=== PATIENT | female | born 2000 | race Caucasian/White ===

== ENCOUNTER 2019-02-18 14:57 | Emergency (ER) | payer MEDICAID ==
[~2019-02-18] VITALS: Ht 157.5 cm; Wt 54.5 kg
[2019-02-18 14:58] VITALS: Ht 157.5 cm; Wt 54.5 kg
--- NOTE | 2019-02-18 15:19 | ERD ---
ER Documentation Chief Complaint Chief Complaint L thumb laceration s/p cutting it on metal bed piece HPI Patient is a 19 years old female with no known past medical history presenting to the clinic for laceration of left thumb next few hours ago while at work. She reports cutting bread when she accidentally cut her left thumb with the red knife. She admits to last tetanus vaccination 2 years ago. ROS All systems reviewed and are negative except as per history of present illness. Medications Home Meds Active Scripts Ibuprofen* (Motrin*) 800 Mg Tab, 800 MG PO Q6, #30 TAB Prov:WOODY EATON PA-C 02/18/19 Allergies Allergies: Coded Allergies: No Known Allergy (Unverified , 02/18/19) Physical Exam Vitals Vital Signs Date Temp Pulse Resp B/P (MAP) Pulse Ox O2 O2 Flow FiO2 Time Delivery Rate 02/18/19 98.4 107 16 130/91 98 14:58 (104) Physical Exam Const: No acute distress Head: Atraumatic Eyes: Normal Conjunctiva Resp: Clear to auscultation bilaterally Cardio: Regular rate and rhythm, no murmurs Neur: Awake and alert Psych: Normal Mood and Affect Left Thumb Exam: 4 cm laceration located on distal ventral that is actively bleeding. No signs of any pus drainage, erythema, induration noted. Results 24 hrs Laboratory Tests Test 02/18/19 15:30 POC Beta HCG, Qualitative NEGATIVE Current Medications Medications Dose Sig/Keyanna Start Time Status Last (Trade) Ordered Route PRN Stop Time Admin Dose Reason Admin Ibuprofen 600 mg ONCE ONCE 02/18/19 DC 02/18/19 (Motrin) PO 15:30 02/18/19 15:16 15:31 Bacitracin 1 applic ONCE ONCE 02/18/19 DC 02/18/19 (Bacitracin TOP 15:30 02/18/19 15:14 Oint (Ud)) 15:31 Procedures/MDM Patient was seen and evaluated for thumb laceration. Wound irrigation with Betadine and normal saline was applied prior to the laceration repair. Under sterile technique, 1% lidocaine was applied allowed by 4 - 4.0 Prolene sutures applied. Patient tolerated the procedure well without any complications. Dressing application with bacitracin applied post laceration repair. Patient stable and ready for discharge. Follow-up in 7 days for suture removal. Patient will not be given antibiotics at today's visit unless signs of infection persist. Patient was advised to follow-up in 2 days for wound checkup. Departure Diagnosis: Primary Impression: Laceration Condition: Stable Patient Instructions: Laceration, Hand Referrals: [facility] Additional Instructions: Call your primary care doctor TOMORROW for an appointment during the next 1-2 days.See the doctor sooner or return here if your condition worsens before your appointment time. Follow up in 2 days in your clinic for wound check. Paciente aconseja volver a Departamento de urgencias inmediatamente para sntomas nuevos o que empeoran . Paciente aconseja posteriores con el PCP en 2-3 webb . Paciente verbaliza la comprehensin y est de acuerdo con el tratamiento y el curso de accin. Si el paciente no tiene ninguna de atencin primaria pueden seguir con [facility] [address] [place] [address] o [facility] + [address] [address] WOODY EATON PA-C Feb 18, 2019 15:19
[2019-02-18] MEDS ORDERED: IBUP800T48 PO (15:21)
[2019-02-18] MEDS ORDERED: BACITRACIN 0.9 GM OINT TOP ONE (15:30)
[2019-02-18] MEDS ORDERED: IBUPROFEN 600 MG TAB PO ONE (15:30)
[2019-02-18 16:04] VITALS: BP 113/78; PULSE 73; RESP 16
== END 2019-02-18 16:04 | disposition home or self-care (01) ==
LOC: FTE 14:57
DX: S61.012A Laceration without foreign body of left thumb without damage to nail, initial encounter (principal); W26.0XXA Contact with knife, initial encounter; Y92.89 Other specified places as the place of occurrence of the external cause
CPT/HCPCS: 12002; 81025; Z7502; Z7610

== ENCOUNTER 2019-02-25 10:36 | Emergency (ER) | payer MEDICAID ==
[~2019-02-25] VITALS: Ht 152.4 cm; Wt 54.0 kg
[~2019-02-25 10:36] MED LIST: IBUP800T48 PO
[2019-02-25 10:38] VITALS: BP 117/67; PULSE 89; RESP 18; Ht 152.4 cm; Wt 54.0 kg
--- NOTE | 2019-02-25 10:59 | ERD ---
ER Documentation Chief Complaint Chief Complaint LEFT THUMB SUTURE REMOVAL HPI 19-year-old female presenting for suture removal of the left thumb. Patient cut herself 8 days ago using a knife and sutures placed. Patient is right-hand dominant. Denies any numbness or tingling. Denies other medical problems. NKDA. Surgical history denies. Social history denies ROS All systems reviewed and are negative except as per history of present illness. Medications Home Meds Active Scripts Ibuprofen* (Motrin*) 800 Mg Tab, 800 MG PO Q6, #30 TAB Prov:WOODY EATON PA-C 02/18/19 Allergies Allergies: Coded Allergies: No Known Allergy (Unverified , 02/18/19) PMhx/Soc History of Surgery: No Anesthesia Reaction: No Hx Neurological Disorder: No Hx Respiratory Disorders: No Hx Cardiac Disorders: No Hx Psychiatric Problems: No Hx Miscellaneous Medical Probl: No Hx Alcohol Use: Yes Hx Substance Use: Yes (tried marijuana) Hx Tobacco Use: No Smoking Status: Never smoker FmHx Family History: No diabetes, No coronary disease, No other Physical Exam Vitals Vital Signs Date Temp Pulse Resp B/P (MAP) Pulse Ox O2 O2 Flow FiO2 Time Delivery Rate 02/25/19 98.1 89 18 117/67 99 10:38 (84) Physical Exam GENERAL: The patient is well-appearing, well-nourished, in no acute distress CHEST: Clear to auscultation bilaterally. There are no rales, wheezes or rhonchi. HEART: Regular rate and rhythm. No murmurs, clicks, rubs or gallops. EXTREMITIES: Equal pulses bilaterally. There is no peripheral clubbing, cyanosis or edema. No focal swelling or erythema. Full range of motion. Grossly neurovascularly intact. NEUROLOGIC: Alert and oriented. Cranial nerves II through XII intact. Motor strength in all 4 extremities with 5 out of 5 strength. Sensation grossly intact. SKIN: Healed laceration noted to left thumb. No surrounding erythema or purulence. Procedures/MDM ER course: Sutures removed without complication. DM: 19-year-old female presenting for suture removal to left thumb. Sutures were removed without complication. I have low suspicion for tendon or ligament injury. I have low suspicion for wound infection. Patient is discharged with strict ER precautions and told to follow-up with primary care within 1 to 2 days for close evaluation. Patient is told symptoms change or worsen to return immediately to the ER. All questions answered at discharge Departure Diagnosis: Primary Impression: Encounter for removal of sutures Condition: Stable Patient Instructions: Suture Removal, No Complication Referrals: [facility] YOU HAVE RECEIVED A MEDICAL SCREENING EXAM AND THE RESULTS INDICATE THAT YOU DO NOT HAVE A CONDITION THAT REQUIRES URGENT TREATMENT IN THE EMERGENCY DEPARTMENT. FURTHER EVALUATION AND TREATMENT OF YOUR CONDITION CAN WAIT UNTIL YOU ARE SEEN IN YOUR DOCTORS OFFICE WITHIN THE NEXT 1-2 DAYS. IT IS YOUR RESPONSIBILITY TO MAKE AN APPOINTMENT FOR FOLOW-UP CARE. IF YOU HAVE A PRIMARY DOCTOR --you should call your primary doctor and schedule an appointment IF YOU DO NOT HAVE A PRIMARY DOCTOR YOU CAN CALL OUR PHYSICIAN REFERRAL HOTLINE AT IF YOU CAN NOT AFFORD TO SEE A PHYSICIAN YOU CAN CHOSE FROM THE FOLLOWING [facility] [address] [facility] [address] [facility] [address] [facility] [address] [facility] [address] [facility]. [facility] [address] Additional Instructions: FOLLOW UP WITH YOUR PRIMARY CARE PHYSICIAN TOMORROW.Return to this facility if you are not improving as expected. ADDIE POE PA-C Feb 25, 2019 10:59
== END 2019-02-25 10:57 | disposition home or self-care (01) ==
LOC: FTE 10:36
DX: Z48.02 Encounter for removal of sutures (principal)
CPT/HCPCS: 99281